=== PATIENT | male | born 1985 | race African-American/Black ===

== ENCOUNTER → 2019-11-24 | Outpatient (CLI) | payer OTHER | END | disposition home or self-care (01) | LOC: CFH 08:33 | PROVIDERS: ATTEND Internal Medicine Cardiovascular Disease | DX: I37.1 Nonrheumatic pulmonary valve insufficiency (principal); I21.3 ST elevation (STEMI) myocardial infarction of unspecified site | CPT/HCPCS: 93306 ==

== ENCOUNTER 2021-03-23 15:03 | Day surgery (SDC) | payer OTHER ==
[~2021-03-23] VITALS: Ht 180.3 cm; Wt 55.7 kg
[2021-03-23] MEDS ORDERED: MIDAZOLAM 1 MG/ML, 2ML ONE (15:45)
[2021-03-23 15:53] VITALS: BP 123/83
[2021-03-23] MEDS ORDERED: CHLORHEXIDINE 15 ML UDC ONE (15:56)
[2021-03-23] MEDS ORDERED: morphine SULFATE 10 MG/ML, 1ML IVPush PRN (16:00)
[2021-03-23] MEDS ORDERED: LACTATED RINGERS 1,000 ML IV SCH (16:00)
[2021-03-23] MEDS ORDERED: ONDANSETRON 2MG/ML, 2ML IVPush PRN (16:00)
[2021-03-23] MEDS ORDERED: CHLORHEXIDINE 15 ML UDC PO ONE (16:00)
[2021-03-23] MEDS ORDERED: MEPERIDINE/PF 25MG/0.5ML IVPush PRN (16:00)
[2021-03-23] MEDS ORDERED: hydrALAzine 20 MG/ML, 1ML IV PRN (16:00)
[2021-03-23] MEDS ORDERED: LABETALOL 5MG/ML, 20ML IV PRN (16:00)
[2021-03-23] MEDS ORDERED: ACETAMINOPHEN 325 MG TABLET PO PRN (16:00)
[2021-03-23] MEDS ORDERED: OXYcodone 5 MG/5 ML ORAL.SOL UDC PO PRN (16:00)
[2021-03-23] MEDS ORDERED: CEFAZOLIN 1,000 MG ONE (16:15)
[2021-03-23] MEDS ORDERED: PHENYLEPHRINE 10 MG/ML ONE (16:15)
[2021-03-23] MEDS ORDERED: NEOSTIGMINE 1 MG/ML, 10ML ONE (16:15)
[2021-03-23] MEDS ORDERED: ROCURONIUM 10 MG/ML,10ML ONE (16:15)
[2021-03-23] MEDS ORDERED: GLYCOPYRROLATE 0.2MG/1ML, 5ML ONE (16:15)
[2021-03-23] MEDS ORDERED: PROPOFOL 10 MG/ML, 20ML ONE (16:15)
[2021-03-23] MEDS ORDERED: EPINEPHRINE 1 MG/ML, 1ML ONE (16:30)
[2021-03-23] MEDS ORDERED: BUPIVACAINE/PF 0.5% ONE (16:30)
[2021-03-23] MEDS ORDERED: FENTANYL PF 250 MCG/5ML ONE ×2 (16:32)
[2021-03-23] MEDS ORDERED: MEPERIDINE/PF 25MG/ML,1ML ONE (17:22)
[2021-03-23] MEDS ORDERED: FENTANYL PF 100 MCG/2ML ONE (17:29)
[2021-03-23] MEDS: FENTANYL PF 100 MCG/2ML IV PRN ×2 (17:31→17:41)
[2021-03-23] MEDS ORDERED: ACETAMINOPHEN 650 MG/20.3 ML UDC ONE (17:42)
[2021-03-23] MEDS ORDERED: HYDROmorphone 1 MG/ML, 1ML INJ ONE ×2 (17:42→18:16)
[2021-03-23] MEDS ORDERED: OXYcodone 5 MG/5 ML ORAL.SOL UDC ONE (17:43)
[2021-03-23] MEDS: HYDROmorphone 1 MG/ML, 1ML INJ IVPush PRN ×3 (17:48→18:18)
== END 2021-03-23 20:15 | disposition home or self-care (01) ==
LOC: OR 15:03
PROVIDERS: ATTEND Orthopaedic Surgery
DX: S82.61XA Displaced fracture of lateral malleolus of right fibula, initial encounter for closed fracture (principal); I25.2 Old myocardial infarction; Z20.822 Contact with and (suspected) exposure to COVID-19; X58.XXXA Exposure to other specified factors, initial encounter; Y93.89 Activity, other specified; Y92.89 Other specified places as the place of occurrence of the external cause; Y99.8 Other external cause status
CPT/HCPCS: 27792; 73590; 87635; C1713; J0171; J0690; J1170; J2175; J2250; J2370; J2704; J2710; J3010; J7120; 76000